=== PATIENT | female | born 1995 | race Caucasian/White ===

== ENCOUNTER 2018-06-05 14:55 | Emergency (ER) | payer OTHER ==
[~2018-06-05] VITALS: Ht 154.9 cm; Wt 64.5 kg
[2018-06-05 15:10] VITALS: BP 114/80
[2018-06-05] MEDS ORDERED: TOBR5DRO2 LEFTEYE (15:26)
== END 2018-06-05 15:43 | disposition home or self-care (01) ==
LOC: ER 14:56
DX: H10.9 Unspecified conjunctivitis (principal); Z79.899 Other long term (current) drug therapy
CPT/HCPCS: 99283

== ENCOUNTER 2019-07-21 11:44 | Emergency (ER) | payer BC, OTHER ==
[~2019-07-21] VITALS: Ht 154.9 cm; Wt 68.8 kg
[~2019-07-21 11:44] MED LIST: TOBR5DRO2 LEFTEYE
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
[2019-07-21 12:54] LABS: BASOPHILS % (AUTO) 0.2 % (0-1); EOSINOPHILS % (AUTO) 0.3 % (0-6); HEMATOCRIT 42.9 % (35.0-45.0); HEMOGLOBIN 15.1 g/dl (12.0-16.0); LYMPHOCYTES # (AUTO) 1.2 X10'3 (1.1-4.8); LYMPHOCYTES % (AUTO) 12.7 % (21-51); MEAN CORPUSCULAR HEMOGLOBIN 30.2 PG (27.0-31.0); MEAN CORPUSCULAR HGB CONC 35.2 g/dL (33.0-36.5); MEAN CORPUSCULAR VOLUME 85.8 FL (78-98); MEAN PLATELET VOLUME 7.9 FL (7.4-10.4); MONOCYTES # (AUTO) 0.7 X10'3 (0-0.9); NEUTROPHILS # (AUTO) 7.6 X10'3 (1.8-7.7); NEUTROPHILS % (AUTO) 79.8 % (42-75); PLATELET COUNT 279 X10'3 (140-440); RED CELL DISTRIBUTION WIDTH 13.8 % (11.5-14.5); WHITE BLOOD COUNT 9.5 X10'3 (4.5-11.0)
[2019-07-21 13:01] LABS: ALANINE AMINOTRANSFERASE 29 U/L (12-78); ALBUMIN 4.5 G/DL (3.4-5.0); ALBUMIN/GLOBULIN RATIO 1.4 (1.1-1.5); ALKALINE PHOSPHATASE 66 IU/L (46-116); ANION GAP 13 (8-16); ASPARTATE AMINO TRANSFERASE 29 U/L (10-37); BILIRUBIN,TOTAL 2.8 MG/DL (0.1-1.0); BLOOD UREA NITROGEN 8 MG/DL (7-18); CALCIUM 9.2 MG/DL (8.5-10.1); CHLORIDE 103 MMOL/L (99-107); CREATININE 0.89 MG/DL (0.40-0.90); GLUCOSE 83 MG/DL (70-104); POTASSIUM 3.2 MMOL/L (3.5-5.1); SODIUM 140 MMOL/L (135-145); TOTAL PROTEIN 7.7 G/DL (6.4-8.2); eGFR 79 ML/MIN
[2019-07-21 13:09] LABS: ETHANOL < 0.010 GM/DL (0.0-0.010)
--- NOTE | 2019-07-21 13:15 | NUR ---
Breaking primary RN, pt tried to give urine again with no success, pt given potassium, had trouble taking it gave apple sauce she was able to get it down, with little difficulty
[2019-07-21] MEDS ORDERED: potassium Cl 20 mEq SR tablet PO STA (13:16)
[2019-07-21] MEDS ORDERED: LAMO25TA41 PO (13:25)
[2019-07-21] MEDS ORDERED: HYDR-3686 PO (13:25)
[2019-07-21] MEDS ORDERED: CLON-529 PO (13:25)
[2019-07-21] MEDS ORDERED: TRAZ-251 PO (13:27)
[2019-07-21] MEDS ORDERED: cloNIDine 0.1 mg tablet PO PRN (13:40)
[2019-07-21] MEDS ORDERED: hydrOXYzine 25 MG tablet PO PRN (13:40)
[2019-07-21 13:59] LABS: URINE HCG NEGATIVE (NEG)
[2019-07-21 14:02] LABS: CLARITY,URINE SLIGHTLY CLOUDY (Clear); COLOR,URINE STRAW (Yellow); GLUCOSE, URINE NEGATIVE (Neg); KETONES,URINE 15 mg/dl (Neg); LEUKOCYTE ESTERASE ,URINE MODERATE (Neg); NITRITES, URINE NEGATIVE (Neg); OCCULT BLOOD,URINE TRACE-INTACT (Neg); PH,URINE 6.5 (4.8-8.0); PROTEIN,URINE NEGATIVE (Neg)
[2019-07-21 14:04] LABS: UA COLLECTION TYPE CLN CATCH MIDSTREAM
[2019-07-21 14:12] LABS: BACTERIA,URINE 1+ /HPF (Neg); MUCUS STRANDS NONE SEEN /LPF (Neg); RBC,URINE 0-2 /HPF (0-2); SQUAMOUS EPITHELIAL CELL,UR MODERATE /LPF (FEW)
[2019-07-21 14:14] LABS: URINE AMPHETAMINE SCREEN NEGATIVE (Neg); URINE BARBITUATE SCREEN NEGATIVE (Neg); URINE BENZODIAZEPINES SCREEN POSITIVE (Neg); URINE CANNABINOID SCREEN NEGATIVE (Neg); URINE COCAINE SCREEN NEGATIVE (Neg); URINE METHADONE SCREEN NEGATIVE (Neg); URINE OPIATE SCREEN NEGATIVE (Neg); URINE PHENCYCLIDINE SCREEN NEGATIVE (Neg)
--- NOTE | 2019-07-21 14:55 | NUR ---
Patient sleeping supine. No distress observed. Continue to monitor.
--- NOTE | 2019-07-21 16:47 | NUR ---
Patient sitting up in bed. No distress observed. Continue to monitor.
--- NOTE | 2019-07-21 17:10 | NUR ---
[facility] evaluating patient. Continue to monitor.
--- NOTE | 2019-07-21 18:29 | NUR ---
Patient has 5150 placed. Continue to monitor.
--- NOTE | 2019-07-21 18:54 | NUR ---
The patient is on the phone with her mother, she is very aggitated and agressive with her mother. She is stating to her mother that she believes that "They aren't meeting my needs, they won't even give me meds when I ask for them. I might as well not even be here, I'm not even a person to them, it's like I'm nothing to them. There is no point in me even being here, they won't do what I ask anyways. This is fucking ridiculous, I'm starting to get mad." The patient is refering to her stay here at [facility].
--- NOTE | 2019-07-21 19:04 | NUR ---
The patient moved from bed 27 hallway bed to bed 25. She requested a book to read, which she was given.
[2019-07-21] MEDS ORDERED: lamoTRIgine 25mg tablet PO SCH (20:00)
[2019-07-21] MEDS ORDERED: traZODone 50mg tablet PO SCH (21:00)
--- NOTE | 2019-07-21 22:42 | NUR ---
Nurse to nurse report given to Saritha at [facility]. Acceptance is pending.
--- NOTE | 2019-07-21 23:26 | NUR ---
Patient is accepted to [facility], transport will arrive at 0700 tomorrow. is accepting.
--- NOTE | 2019-07-22 03:24 | NUR ---
Patient exhibits restless looking sleep. Frequent rounding for patient safety are being done.
--- NOTE | 2019-07-22 04:15 | NUR ---
Patient sleeping low fowlers position.
[2019-07-22 05:27] VITALS: BP 115/76
--- NOTE | 2019-07-22 05:58 | NUR ---
Patient sleeping on left side.
--- NOTE | 2019-07-22 06:45 | NUR ---
Patient sleeping prone. No distress observed. Continue to monitor.
== END 2019-07-22 07:35 ==
LOC: ER 11:45
DX: R45.851 Suicidal ideations (principal); E87.6 Hypokalemia; Z91.14 Patient's other noncompliance with medication regimen; Z79.899 Other long term (current) drug therapy
CPT/HCPCS: 36415; 80053; 80305; 80320; 81001; 81025; 84443; 85025; 87088; 99285; Z7610